=== PATIENT | male | born 1945 | race Caucasian/White ===

== ENCOUNTER → 2017-09-06 | Day surgery (SDC) | payer MEDICARE, OTHER ==
[~2017-09-06] MED LIST: Propofol 200 MG/20 ML SDV IV ONE; Sodium Chloride 0.9% 500 ML IV SCH
--- NOTE | 2017-09-06 12:13 | OR ---
DATE OF OPERATION: 09/06/2017 PREOPERATIVE DIAGNOSIS: 1. HISTORY OF BELTRÁN ESOPHAGUS. 2. FAMILY HISTORY OF COLON CARCINOMA. POSTOPERATIVE DIAGNOSIS: 1. HISTORY OF BELTRÁN ESOPHAGUS. 2. FAMILY HISTORY OF COLON CARCINOMA. SURGEON: Bobo Paez MD PROCEDURE: 1. ESOPHAGOGASTRODUODENOSCOPY WITH BIOPSIES X5, MEERA. 2. FULL LENGTH COLONOSCOPY. ANESTHESIA: [employer]. COMPLICATIONS: None. SPECIMEN: 1. Antral biopsy x2. 2. MEERA. 3. Distal esophageal biopsies x3. FINDINGS: 1. Full-length EGD. 2. Diffuse antral gastritis. 3. 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 4. Full-length colonoscopy. 5. Sierra diverticulosis, moderate. RECOMMENDATIONS: 1. Routine Beltrán's surveillance every 3 years pending path reports. 2. Followup colonoscopy every 5 years given family history of colon CA. INDICATIONS: The patient has a history of Beltrán esophagus and family history of colon cancer in mother. He is due for upper and lower endoscopy. DESCRIPTION OF PROCEDURE: The patient was prepped and draped, placed in the left lateral decubitus position. A lubricated Olympus gastroscope was inserted over a bit and advanced to cricopharyngeus and easily intubated in the esophagus. The esophageal lining was benign until its most distal portion. The Z-line was sharp around 40 cm. There were 2 small short segment Beltrán's changes, each biopsied one twice in one once. No stricturing or ulceration was seen and no hernia was visualized. The scope was advanced into the stomach through the pylorus and the second portion of the duodenum. This and the duodenal bulb were unremarkable. The scope was brought back into the stomach and retroflexed. The upper fundus and cardia were unremarkable. Upon straightening, the patient does have some chronic appearing gastritis extending from the distal fundus and entirely throughout the antrum. There were no ulcerations or erosions present. Two biopsies were taken in a MEERA test. Air was then suctioned. The scope was removed without complication. A lubricated Olympus colonoscope was inserted and easily advanced to the cecum. Direct visualization of the ileocecal valve and appendiceal orifice was accomplished. The bowel prep was excellent. Upon withdrawal of the scope, the patient does have moderate sierra diverticulosis extending all the way from the cecum to the rectosigmoid junction. This was most problematic as expected in the left colon. Throughout the rest of the colon, I found no signs of any polyps, mass, ulceration, bleeding sites. No vascular abnormalities or signs of colitis. The rectal vault was unremarkable. Retroflexion showed no perianal lesions other than hemorrhoidal tissue. Air was suctioned. Scope was removed without complication. TIMMY /[id number]
== END ==
LOC: CC.SDS 08:31
PROVIDERS: ATTEND Family Medicine
DX: Z12.11 Encounter for screening for malignant neoplasm of colon (principal); K29.50 Unspecified chronic gastritis without bleeding; K57.30 Diverticulosis of large intestine without perforation or abscess without bleeding; B33.20 Viral carditis, unspecified; J44.9 Chronic obstructive pulmonary disease, unspecified; K21.9 Gastro-esophageal reflux disease without esophagitis; Z87.19 Personal history of other diseases of the digestive system; Z80.0 Family history of malignant neoplasm of digestive organs; Z79.899 Other long term (current) drug therapy
CPT/HCPCS: 43239; 87081; G0105; J2704; J7040; 00810; 88305

== ENCOUNTER → 2020-12-30 | Day surgery (SDC) | payer MEDICARE, OTHER ==
[2020-12-30] MEDS: Lactated Ringers 1,000 ML IV SCH (08:14)
--- NOTE | 2021-01-02 09:20 | OR ---
DATE OF OPERATION: 12/30/2020 PREOPERATIVE DIAGNOSIS: 1. ABDOMINAL BLOATING. 2. HISTORY OF BELTRÁN'S ESOPHAGUS. POSTOPERATIVE DIAGNOSIS: 1. ABDOMINAL BLOATING. 2. HISTORY OF BELTRÁN'S ESOPHAGUS. SURGEON: Bobo Paez MD PROCEDURE: DIAGNOSTIC ESOPHAGOGASTRODUODENOSCOPY WITH BIOPSIES X4, MEERA. ANESTHESIA: MAC. COMPLICATIONS: None. SPECIMEN: 1. Antral biopsy x2. 2. Antral MEERA. 3. Distal esophageal biopsy x2. FINDINGS: 1. Full-length diagnostic EGD. 2. Mild chronic antral gastritis. 3. Short segment Beltrán's esophagus without change from prior. RECOMMENDATIONS: 1. Medical followup with Dr. Leilani Rojas pending pathology reports. 2. Routine EGD in 3 years for Beltrán's surveillance. INDICATIONS: The patient has known Beltrán esophagus, short segment, biopsy- proven. He has been having some increasing abdominal bloating, and diagnostic EGD was ordered. DESCRIPTION OF PROCEDURE: The patient was prepped and draped, placed in a left lateral decubitus position. A lubricated Olympus gastroscope was inserted over a bit, advanced to the cricopharyngeus area, and easily intubated into the esophagus. Esophageal lining was benign until its most distal portion. The Z- line was crisp and sharp at around 40 cm. No spontaneous reflux was seen. The patient had two very small areas of short-segment Beltrán's. Both were biopsied without any complication. There were no stricturing, ulceration, or signs of hernia. The scope was advanced into the stomach, through the pylorus, and into the second portion of the duodenum. This and the duodenal bulb were benign. The scope was brought back into the stomach and retroflexed. The upper fundus and cardia were unremarkable. Upon straightening, the rest of the fundus was benign. The patient did have the appearance of chronic antral gastritis, very mild. Two biopsies of care support representative areas were taken along with unaffected portion of the antrum for CLOtest. Air was then suctioned from the stomach, and the scope removed without complications. GUY/TERESA /[id number]
== END ==
LOC: CC.SDS 08:00
PROVIDERS: ATTEND Family Medicine
DX: K29.50 Unspecified chronic gastritis without bleeding (principal); K22.70 Barrett's esophagus without dysplasia; K31.89 Other diseases of stomach and duodenum; J96.10 Chronic respiratory failure, unspecified whether with hypoxia or hypercapnia; K21.9 Gastro-esophageal reflux disease without esophagitis; J44.9 Chronic obstructive pulmonary disease, unspecified; I10 Essential (primary) hypertension; E78.5 Hyperlipidemia, unspecified; N40.0 Benign prostatic hyperplasia without lower urinary tract symptoms; Z87.19 Personal history of other diseases of the digestive system; Z87.891 Personal history of nicotine dependence
CPT/HCPCS: 00731; 43239; 87081; 88305; 88342; J7120

== ENCOUNTER 2025-07-18 10:15 | Emergency (ER) | payer OTHER ==
[2025-07-18 10:41] LABS: BASOPHILS ABSOLUTE AUTO 0.01 10^3/uL (0.00-0.50); BASOPHILS PERCENT AUTO 0.2 % (0-1); EOSINOPHILS ABSOLUTE AUTO 0.04 10^3/uL (0.00-1.50); EOSINOPHILS PERCENT AUTO 0.6 % (0-6); IMMATURE GRAN ABSOLUTE AUTO 0.01 10^3/uL (0.00-0.49); IMMATURE GRAN PERCENT AUTO 0.2 % (0.0-4.9); LYMPHOCYTES ABSOLUTE AUTO 1.32 10^3/uL (0.60-5.00); LYMPHOCYTES PERCENT AUTO 20.0 % (24-44); MONOCYTES ABSOLUTE AUTO 0.55 10^3/uL (0.00-1.50); MONOCYTES PERCENT AUTO 8.3 % (0-10); NEUTROPHILS ABSOLUTE AUTO 4.66 x10^3/uL (1.80-8.00); NEUTROPHILS PERCENT AUTO 70.7 % (41-71); PLATELET COUNT,PLT 141 10^3/uL (150-400); RED BLOOD CELL COUNT 4.68 x10^6/uL (4.50-6.00); WHITE BLOOD CELL COUNT,WBC 6.6 10^3/uL (4.0-11.0)
[2025-07-18 10:53] LABS: ALANINE AMINOTRANSFERASE,ALT 33 U/L (12-78); ASPARTATE AMNIOTRANSFERASE,AST 29 U/L (15-37); BILIRUBIN TOTAL 0.8 mg/dL (0.0-1.0); BLOOD UREA NITROGEN,BUN 13 mg/dL (7-18); CARBON DIOXIDE,CO2 28 mmol/L (21-32); CHLORIDE,CL 104 mEq/L (98-106); CREATININE 0.9 mg/dL (0.7-1.3); EST CRCL DRUG DOSING (CG) 61.20 mL/min; GLUCOSE RANDOM 102 mg/dL (75-99); POTASSIUM,K 3.8 mEq/L (3.5-5.0); PROTEIN TOTAL,TP 6.6 g/dL (6.4-8.2); SODIUM,NA 142 mEq/L (136-145)
[2025-07-18 10:54] LABS: ESTIMATED GFR 86 mL/min (>=60)
== END 2025-07-18 11:28 | disposition home or self-care (01) ==
LOC: CC.ED 10:15
DX: R14.0 Abdominal distension (gaseous) (principal); E78.00 Pure hypercholesterolemia, unspecified; I25.10 Atherosclerotic heart disease of native coronary artery without angina pectoris; J44.9 Chronic obstructive pulmonary disease, unspecified; Z79.899 Other long term (current) drug therapy; Z79.51 Long term (current) use of inhaled steroids
CPT/HCPCS: 36415; 74019; 80053; 85025; 86140; 94761; 99284